=== PATIENT | male | born 1965 | race Caucasian/White ===

== ENCOUNTER 2020-02-21 13:22 | Emergency (ER) | payer OTHER ==
[~2020-02-21] VITALS: Ht 177.8 cm; Wt 86.3 kg
[2020-02-21 13:30] VITALS: BP 122/59
--- NOTE | 2020-02-21 13:55 | PHYS DOC ---
Past History Past Medical History: CVA Past Surgical History PFO repair, cardiac ablation Smoking: Non-smoker Alcohol Use: Rarely Drug Use: None General Adult EDM: Chief Complaint: LOWER EXT PAIN HPI: HPI: Patient is a 54-year-old male with a history of right-sided CVA, PFO repair, and cardiac ablation who presents to the emergency room with right lower extremity numbness and tingling that started around 12:50 PM this afternoon when he stood up from sitting on the toilet. Currently the symptoms have mostly resolved. He states that the symptoms have been occurring intermittently for the past few months. He notices them more when he is sitting for long periods of time. He states that the symptoms worsen when he flexes his hip and nothing helps relieve them. Denies any recent trauma to his head or back. Review of Systems: Review of Systems: Constitutional: Denies fever or chills Eyes: Denies redness or eye pain HENT: Denies nasal congestion or sore throat Respiratory: Denies cough or shortness of breath Cardiovascular: Denies chest pain or palpitations GI: Denies abdominal pain, nausea, or vomiting : Denies dysuria or hematuria Musculoskeletal: Denies back pain or joint pain Integument: Denies rash or skin lesions Neurologic: Denies headache, reports numbness and tingling down his right lower extremity Complete systems were reviewed and found to be within normal limits, except as documented in this note. Physical Exam: PE: Constitutional: Well developed, well nourished, no acute distress, non-toxic appearance HENT: Normocephalic, atraumatic Eyes: PERRL, EOMI, conjunctiva normal, no discharge Neck: Normal range of motion, no tenderness, supple Lungs & Thorax: No respiratory distress, equal chest rise and fall Abdomen: Soft, no tenderness Skin: Warm, dry, no erythema, no rash Back: No tenderness, no CVA tenderness Extremities: No tenderness, ROM intact, no edema Neurologic: Alert and oriented X 3, normal motor function, normal sensory function, no focal deficits noted, CN II-XII grossly intact bilaterally Psychologic: Affect normal, judgment normal Course & Med Decision Making: Course & Med Decision Making Patient is a 54-year-old male with a history of right-sided CVA who presents to the emergency room with right lower extremity numbness and tingling. Patient's symptoms have resolved at this time. I suspect his symptoms are due to a nerve impingement, which will require further eval with an outpatient MRI. I instructed the patient to follow-up with pain management. He will be sent home with a prescription for steroids and a muscle relaxer. Patient stable for discharge with outpatient follow-up with PCP/physical therapy. Discussed findings and plan with patient, who acknowledges understanding and agreement. Olvin Disclaimer: Olvin Disclaimer: This electronic medical record was generated, in whole or in part, using a voice recognition dictation system. Departure Departure: Impression: Primary Impression: Right leg numbness Disposition: HOME/RESIDENCE PRIOR TO ADM Condition: STABLE Referrals: PCP,NO (PCP) Patient Instructions: Paresthesia, [id number], Sciatica, [id number] Additional Instructions: Please followup with pain management for further evaluation and treatment. Please call Dr. Juan Francisco Boyd (pain managment) at [facility] for further evaluation and treatment. Address: [address] [place] [address], [place] [address] Scripts Prednisone (PREDNISONE) 20 Mg Tablet 2 TAB PO DAILY for Sciatica, #8 TAB Start this prescription tomorrow, 02/22/2020 Prov: ERIKA VALADEZ DO 02/21/20 Orphenadrine Citrate (ORPHENADRINE CITRATE) 100 Mg Tablet.er 1 TAB PO DAILY PRN for MUSCLE PAIN, #14 TAB 0 Refills Prov: ERIKA VALADEZ DO 02/21/20 Justification of Admission: Justification of Admission: Justification of Admission Dx: N/A ERIKA VALADEZ DO Feb 21, 2020 13:55
[2020-02-21] MEDS ORDERED: DEXAMETHASONE 4 MG TABLET PO ONE (14:15)
[2020-02-21] MEDS ORDERED: PRED20TA PO (14:32)
[2020-02-21] MEDS ORDERED: ORPH-16 PO (14:32)
== END 2020-02-21 14:45 | disposition home or self-care (01) ==
LOC: ER 13:22
DX: R20.0 Anesthesia of skin (principal); Z86.73 Personal history of transient ischemic attack (TIA), and cerebral infarction without residual deficits
CPT/HCPCS: 99283; J8540